=== PATIENT | female | born 1970 | race Caucasian/White ===

== ENCOUNTER 2017-09-21 20:01 | Emergency (ER) | payer OTHER ==
[~2017-09-21] VITALS: Ht 160 cm; Wt 68.0 kg
[2017-09-21] MEDS ORDERED: Amphetamine Sal30 MG PO (20:16)
[2017-09-21] MEDS ORDERED: LOSARTAN-HCTZ1 EACH PO (20:16)
[2017-09-21] MEDS ORDERED: BUPR75 PO (20:16)
[2017-09-21] MEDS ORDERED: CITA20 PO (20:16)
[2017-09-21] MEDS ORDERED: CYCL10 PO (21:41)
[2017-09-22] MEDS ORDERED: Percocet 5-3251 EACH PO (17:33)
== END 2017-09-21 21:49 | disposition home or self-care (01) ==
LOC: ER 20:01
DX: S20.211A Contusion of right front wall of thorax, initial encounter (principal); S30.1XXA Contusion of abdominal wall, initial encounter; I10 Essential (primary) hypertension; F32.9 Major depressive disorder, single episode, unspecified; Z79.899 Other long term (current) drug therapy; W19.XXXA Unspecified fall, initial encounter
CPT/HCPCS: 71100; 96372; 99283; J1885

== ENCOUNTER 2017-09-22 15:00 | Emergency (ER) | payer OTHER ==
[~2017-09-22] VITALS: Ht 160 cm; Wt 68.0 kg
[~2017-09-22 15:00] MED LIST: Amphetamine Sal30 MG PO; BUPR75 PO; CITA20 PO; CYCL10 PO; LOSARTAN-HCTZ1 EACH PO
[2017-09-22] MEDS ORDERED: Percocet 5-3251 EACH PO (17:33)
== END 2017-09-22 17:50 | disposition home or self-care (01) ==
LOC: ER 15:00
DX: S22.31XA Fracture of one rib, right side, initial encounter for closed fracture (principal); S27.1XXA Traumatic hemothorax, initial encounter; I10 Essential (primary) hypertension; F32.9 Major depressive disorder, single episode, unspecified; Z79.899 Other long term (current) drug therapy; W22.8XXA Striking against or struck by other objects, initial encounter
CPT/HCPCS: 74177; 99284; Q9967

== ENCOUNTER 2017-09-25 11:21 | Emergency (ER) | payer OTHER ==
[~2017-09-25] VITALS: Ht 160 cm; Wt 68.0 kg
[~2017-09-25 11:21] MED LIST changes: +Percocet 5-3251 EACH PO
[2017-09-25 11:58] LABS: BASOPHILS ABSOLUTE AUTO 0.06 K/mm3 (0.00-0.23); BASOPHILS PERCENT AUTO 0 % (0-2); EOSINOPHILS ABSOLUTE AUTO 0.33 K/mm3 (0.00-0.68); EOSINOPHILS PERCENT AUTO 2 % (0-6); Hematocrit 39.2 % (33.0-51.0); Hemoglobin 13.3 g/dL (11.5-16.0); IMMATURE GRAN ABSOLUTE AUTO 0.09 K/mm3 (0.00-0.10); IMMATURE GRAN PERCENT AUTO 1 % (0-1); LYMPHOCYTES ABSOLUTE AUTO 0.73 K/mm3 (0.84-5.20); LYMPHOCYTES PERCENT AUTO 5 % (21-46); MONOCYTES ABSOLUTE AUTO 1.14 K/mm3 (0.16-1.47); MONOCYTES PERCENT AUTO 8 % (4-13); Mean Corpuscular HGB 30.3 pg (26.0-34.0); Mean Corpuscular HGB Conc 33.9 g/dL (31.5-36.5); Mean Corpuscular Volume 89 fL (80-100); Mean Platelet Volume 9.7 fL (9.1-12.4); NEUTROPHILS ABSOLUTE AUTO 12.55 K/mm3 (1.96-9.15); NEUTROPHILS PERCENT AUTO 84 % (41-73); Platelet Count 300 K/mm3 (150-400); RDW Coefficient Variation 11.8 % (11.7-14.2); RDW Standard Deviation 38.4 fL (35.1-46.3); Red Blood Cell Count 4.39 M/mm3 (3.80-5.20)
[2017-09-25 12:18] LABS: Alanine Aminotransfer (ALT/SGP 29 U/L (12-78); Albumin, Blood 3.6 g/dL (3.4-5.0); Albumin/Globulin Ratio 0.8 (0.8-1.8); Alk Phos 89 U/L (50-136); Anion Gap 10 mmol/L (6-16); Aspartate Aminotrans (AST/SGOT 27 U/L (12-37); Bilirubin, Total 0.6 mg/dL (0.1-1.0); Blood Urea Nitrogen 8 mg/dL (8-24); Bun/Creatinine Ratio 13.9 (12.0-20.0); CO2, Blood 27 mmol/L (21-32); Calcium, Blood 9.4 mg/dL (8.5-10.1); Chloride, Blood 98 mmol/L (98-108); Creatinine, Blood 0.58 mg/dL (0.40-1.00); Globulin, Blood 4.5 g/dL (2.2-4.0); Glomerular Filtration Rate >60 (60-); Glucose, Blood 106 mg/dL (70-99); Potassium, Blood 3.9 mmol/L (3.5-5.5); Sodium, Blood 135 mmol/L (136-145); Total Protein, Blood 8.1 g/dL (6.4-8.2)
[2017-09-25] MEDS ORDERED: NYST237S MT (13:11)
== END 2017-09-25 13:27 | disposition home or self-care (01) ==
LOC: ER 11:21
PROVIDERS: Physician Assistant
DX: J02.9 Acute pharyngitis, unspecified (principal); R21 Rash and other nonspecific skin eruption; S22.31XD Fracture of one rib, right side, subsequent encounter for fracture with routine healing; J98.11 Atelectasis; J94.2 Hemothorax; Z79.899 Other long term (current) drug therapy; I10 Essential (primary) hypertension; F32.9 Major depressive disorder, single episode, unspecified; W19.XXXD Unspecified fall, subsequent encounter
CPT/HCPCS: 71046; 80053; 85025; 99283; J1100